=== PATIENT | female | born 1995 | race Caucasian/White ===

== ENCOUNTER 2016-11-08 17:35 | Emergency (ER) | payer OTHER | END 2016-11-08 22:38 | disposition home or self-care (01) | LOC: FER 17:35 | DX: S61.216A Laceration without foreign body of right little finger without damage to nail, initial encounter (principal); R42 Dizziness and giddiness; R11.0 Nausea; F17.210 Nicotine dependence, cigarettes, uncomplicated; W45.8XXA Other foreign body or object entering through skin, initial encounter ==

== ENCOUNTER 2021-05-30 15:15 | Emergency (ER) | payer OTHER ==
[~2021-05-30 15:15] MED LIST: BACTRIM DS TAB1 EACH PO; HYDROCODON-ACE1 EAC4 PO; MOTRIN600 MG PO; ONDANSETRON ODT4 MG PO; PHENERGAN25 M1 PO
[2021-05-30 17:16] LABS: BASOPHIL 0.4 % (0-2); EOSINOPHIL 0.2 % (0-5); HCT 39.7 % (37.0-47.0); HGB 13.4 g/dl (12.5-16.0); LYMPHOCYTE 25.8 % (15-48); MCH 29.8 pg (25.0-31.0); MCHC 33.8 g/dL (32.0-36.0); MCV 88.4 fL (78.0-100.0); MONOCYTE 5.5 % (0-12); MPV 10.8 fL (6.0-9.5); NEUTROPHIL 67.6 % (41-80); NRBC 0; PLT 239 K/uL (150-400); RBC 4.49 M/uL (4.20-5.40); RDW 12.8 % (11.5-14.0); WBC 11.5 K/uL (4.0-10.5)
[2021-05-30 17:27] LABS: BILIRUBIN NEGATIVE (NEGATIVE); BLOOD 2+ Ery/uL (NEGATIVE); CLARITY CLEAR (CLEAR); COLOR YELLOW (YELLOW); GLUCOSE (U) NORMAL (NORMAL); LEUKOCYTES NEGATIVE Leu/uL (NEGATIVE); NITRITE NEGATIVE (NEGATIVE); PROTEIN NEGATIVE (NEGATIVE); SPECIFIC GRAVITY >=1.030 (1.001-1.030); UROBILINOGEN 0.2 mg/dL (0.2-1.0)
[2021-05-30 17:34] LABS: ALBUMIN 3.7 g/dL (3.4-5.0); BILIRUBIN - TOTAL 0.5 mg/dL (0.2-1.0); BUN/CREAT RATIO (CALC) 11.1 RATIO; CREATININE 0.72 mg/dL (0.51-0.95); GLOBULIN (CALCULATION) 3.9 g/dL; POTASSIUM 4.1 mmol/L (3.5-5.1); TOTAL PROTEIN 7.6 g/dL (6.4-8.2)
[2021-05-30 17:37] LABS: AMORPHOUS URATES CRYSTALS TRACE; SQUAMOUS EPITHELIAL CELLS RARE
[2021-05-30] MEDS ORDERED: REGLAN10 MG PO (18:45)
== END 2021-05-30 19:00 | disposition home or self-care (01) ==
LOC: FER 15:15
PROVIDERS: Physician Assistant
DX: K57.90 Diverticulosis of intestine, part unspecified, without perforation or abscess without bleeding (principal); K76.0 Fatty (change of) liver, not elsewhere classified; K42.9 Umbilical hernia without obstruction or gangrene; Z28.310 Unvaccinated for COVID-19
CPT/HCPCS: 36415; 80053; 81001; 83690; 85025

== ENCOUNTER 2021-10-24 14:46 | Inpatient (IN) | payer OTHER ==
[~2021-10-24] VITALS: Ht 188 cm; Wt 154.2 kg
[~2021-10-24 14:46] MED LIST changes: +REGLAN10 MG PO
[2021-10-24 15:12] LABS: BASOPHIL 0.3 % (0-2); EOSINOPHIL 0.3 % (0-5); HCT 40.5 % (37.0-47.0); HGB 14.4 g/dl (12.5-16.0); LYMPHOCYTE 17.1 % (15-48); MCH 29.9 pg (25.0-31.0); MCHC 35.6 g/dL (32.0-36.0); MCV 84.2 fL (78.0-100.0); MONOCYTE 6.9 % (0-12); MPV 10.6 fL (6.0-9.5); NEUTROPHIL 74.8 % (41-80); NRBC 0; PLT 283 K/uL (150-400); RBC 4.81 M/uL (4.20-5.40); RDW 12.6 % (11.5-14.0); WBC 9.9 K/uL (4.0-10.5)
[2021-10-24 15:14] LABS: BILIRUBIN 1+ mg/dL (NEGATIVE); BLOOD 3+ Ery/uL (NEGATIVE); COLOR YELLOW (YELLOW); GLUCOSE (U) NORMAL (NORMAL); LEUKOCYTES NEGATIVE Leu/uL (NEGATIVE); NITRITE NEGATIVE (NEGATIVE); PROTEIN 1+ mg/dL (NEGATIVE); SPECIFIC GRAVITY 1.015 (1.001-1.030); pH 8.5 (5.0-9.0)
[2021-10-24 15:21] LABS: CLARITY HAZY (CLEAR)
[2021-10-24 15:27] LABS: ALBUMIN 3.6 g/dL (3.4-5.0); BILIRUBIN - TOTAL 1.2 mg/dL (0.2-1.0); BUN/CREAT RATIO (CALC) 9.2 RATIO; CREATININE 0.76 mg/dL (0.51-0.95); GLOBULIN (CALCULATION) 3.6 g/dL; POTASSIUM 2.9 mmol/L (3.5-5.1); TOTAL PROTEIN 7.2 g/dL (6.4-8.2)
[2021-10-24 15:34] LABS: AMPHETAMINES NEGATIVE (NEGATIVE); BARBITURATES NEGATIVE (NEGATIVE); ECSTASY (MDMA) NEGATIVE (NEGATIVE); MARIJUANA (THC) POSITIVE (NEGATIVE); METHADONE NEGATIVE (NEGATIVE); OPIATES NEGATIVE (NEGATIVE); OXYCODONE NEGATIVE (NEGATIVE)
[2021-10-24 15:43] LABS: URINARY RBC TNTC
[2021-10-24 15:44] LABS: MUCOUS MODERATE
[2021-10-24 15:46] LABS: BACTERIA TRACE
[2021-10-24 23:30] LABS: BUN/CREAT RATIO (CALC) 7.4 RATIO; CREATININE 0.81 mg/dL (0.51-0.95); POTASSIUM 2.8 mmol/L (3.5-5.1)
[2021-10-25 06:33] LABS: HCT 38.3 % (37.0-47.0); HGB 13.2 g/dl (12.5-16.0); MCH 29.9 pg (25.0-31.0); MCHC 34.5 g/dL (32.0-36.0); MCV 86.8 fL (78.0-100.0); MPV 10.8 fL (6.0-9.5); RBC 4.41 M/uL (4.20-5.40); RDW 12.7 % (11.5-14.0); WBC 8.3 K/uL (4.0-10.5)
[2021-10-25 06:59] LABS: BUN/CREAT RATIO (CALC) 7.4 RATIO; CREATININE 0.81 mg/dL (0.51-0.95); POTASSIUM 2.8 mmol/L (3.5-5.1)
[2021-10-25 13:34] LABS: BUN/CREAT RATIO (CALC) 8.1 RATIO; CREATININE 0.86 mg/dL (0.51-0.95); POTASSIUM 3.1 mmol/L (3.5-5.1)
[2021-10-26 06:55] LABS: BASOPHIL 0.3 % (0-2); HCT 35.8 % (37.0-47.0); HGB 12.3 g/dl (12.5-16.0); LYMPHOCYTE 30.5 % (15-48); MCH 30.3 pg (25.0-31.0); MCHC 34.4 g/dL (32.0-36.0); MCV 88.2 fL (78.0-100.0); MONOCYTE 8.7 % (0-12); MPV 10.3 fL (6.0-9.5); NEUTROPHIL 58.8 % (41-80); NRBC 0; PLT 196 K/uL (150-400); RBC 4.06 M/uL (4.20-5.40); RDW 12.9 % (11.5-14.0); WBC 7.2 K/uL (4.0-10.5)
[2021-10-26 07:16] LABS: ALBUMIN 3.1 g/dL (3.4-5.0); BILIRUBIN - TOTAL 1.1 mg/dL (0.2-1.0); BUN/CREAT RATIO (CALC) 9.3 RATIO; CREATININE 0.86 mg/dL (0.51-0.95); POTASSIUM 3.5 mmol/L (3.5-5.1); TOTAL PROTEIN 6.1 g/dL (6.4-8.2)
--- NOTE | 2021-10-27 09:49 | NUR ---
10/27/21 Ms. Gay shares a home with her firogerio and her 7 y/o daughter. She is a college student. Ms. Gay reports to be able to meet her financial obligations. No discharge planning needs are anticipated.
== END 2021-10-27 12:42 | disposition home or self-care (01) | DRG 417 ==
LOC: FER 14:46 → FMS 18:36
PROVIDERS: Emergency Medicine; Internal Medicine; Nurse Practitioner Acute Care; Student in an Organized Health Care Education/Training Program; ADMIT Internal Medicine
PROC: 8E0ZXY6 Isolation (ICD-10-PCS; 2021-10-24)
PROC: 0FT44ZZ Resection of Gallbladder, Percutaneous Endoscopic Approach (ICD-10-PCS; principal; 2021-10-26 12:15)
DX: K81.0 Acute cholecystitis (principal); U07.1 COVID-19; Z68.41 Body mass index [BMI] 40.0-44.9, adult; K42.0 Umbilical hernia with obstruction, without gangrene; Z28.310 Unvaccinated for COVID-19; K76.0 Fatty (change of) liver, not elsewhere classified; E87.6 Hypokalemia; E66.01 Morbid (severe) obesity due to excess calories; F41.9 Anxiety disorder, unspecified; R31.9 Hematuria, unspecified; Z82.49 Family history of ischemic heart disease and other diseases of the circulatory system; F12.10 Cannabis abuse, uncomplicated
CPT/HCPCS: 36415; 76700; 78227; 80048; 80053; 80305; 81001; 83690; 84484; 85025; 93005; A9537; J1100; J1170; J1650; J1885; J2060; J2405; J2550; J2704; J2710; J2805; J3010; J3480; J7030; J7120; Q9967; U0002